=== PATIENT | male | born 1965 | race Caucasian/White ===

== ENCOUNTER 2024-11-20 00:02 | Emergency (ER) | payer OTHER ==
[~2024-11-20] VITALS: Ht 195.6 cm; Wt 150.8 kg
[2024-11-20] MEDS ORDERED: NEOMYCIN/POLYMYXIN/HYDROCORT 10 ML HOME.PACK OTIC ONE (00:15)
[2024-11-20] MEDS ORDERED: NEOMYCIN/POLYMYXIN/HYDROCORT 10 ML HOME.PACK ONE (00:27)
[2024-11-20 00:36] VITALS: BP 170/100
== END 2024-11-20 00:39 | disposition home or self-care (01) ==
LOC: ED 00:02
DX: T16.2XXA Foreign body in left ear, initial encounter (principal); I10 Essential (primary) hypertension; W44.F2XA Rubber band entering into or through a natural orifice, initial encounter
CPT/HCPCS: 69200; 99282